=== PATIENT | female | born 1950 | race Native Hawaiian/Other Pacific Islander ===

== ENCOUNTER 2016-05-23 13:44 | Emergency (ER) | payer BC ==
[~2016-05-23] VITALS: Ht 170.2 cm; Wt 108.9 kg
[~2016-05-23 13:44] MED LIST: CELE200C2 PO; CITA20TA2 PO; FORTAMET1000 MG PO; GLIM4TAB PO; LEVO0.0218 PO; ONGLYZA5 MG PO; PANT40TA PO; TIROSINT50 MCG PO; WARFARIN5 MG PO; XANAX XR0.5 MG PO
[2016-05-23 14:59] LABS: POTASSIUM 3.4 mmol/L (3.6-5.2)
[2016-05-23 15:08] LABS: PLATELET COUNT 154 K/uL (152-353)
[2016-05-23 19:08] VITALS: BP 119/71; TEMP 98.3
== END 2016-05-23 19:13 | disposition home or self-care (01) ==
LOC: ED 13:44
PROVIDERS: Specialist
DX: L03.314 Cellulitis of groin (principal); R23.4 Changes in skin texture
CPT/HCPCS: 36415; 80048; 85027; 85651; 99282

== ENCOUNTER 2016-11-27 09:03 | Outpatient (CLI) | payer BC | END 2016-11-27 19:07 | disposition home or self-care (01) | LOC: MAMMO 09:03 | DX: Z12.31 Encounter for screening mammogram for malignant neoplasm of breast (principal) ==

== ENCOUNTER 2017-09-13 11:24 | Outpatient (CLI) | payer BC | END 2017-09-13 20:30 | disposition home or self-care (01) | LOC: CT 11:24 | DX: R10.9 Unspecified abdominal pain (principal) | CPT/HCPCS: 36415; 82565; 84520 ==

== ENCOUNTER 2018-02-16 09:13 | Emergency (ER) | payer OTHER, BC ==
[~2018-02-16] VITALS: Ht 170.2 cm; Wt 108.9 kg
[2018-02-16 09:56] VITALS: BP 148/80; TEMP 98
== END 2018-02-16 09:58 | disposition home or self-care (01) ==
LOC: ED 09:13
DX: L27.0 Generalized skin eruption due to drugs and medicaments taken internally (principal); T36.7X5A Adverse effect of antifungal antibiotics, systemically used, initial encounter; T37.8X5A Adverse effect of other specified systemic anti-infectives and antiparasitics, initial encounter; Y92.89 Other specified places as the place of occurrence of the external cause
CPT/HCPCS: 96372; 99282; J2930

== ENCOUNTER 2018-04-28 08:17 | Outpatient (CLI) | payer OTHER, BC ==
[2018-04-28 08:38] LABS: PLATELET COUNT 140 K/uL (152-353)
[2018-04-28 08:59] LABS: POTASSIUM 3.6 mmol/L (3.6-5.2)
== END 2018-04-28 19:33 | disposition home or self-care (01) ==
LOC: LABW 08:17
PROVIDERS: Internal Medicine Cardiovascular Disease
DX: Z79.899 Other long term (current) drug therapy (principal); I10 Essential (primary) hypertension; E11.9 Type 2 diabetes mellitus without complications; R06.02 Shortness of breath; E55.9 Vitamin D deficiency, unspecified
CPT/HCPCS: 36415; 80053; 80061; 82306; 83880; 85027; 86141

== ENCOUNTER 2018-05-12 08:18 | Outpatient (CLI) | payer OTHER, BC ==
[~2018-05-12] VITALS: Ht 30.5 cm; Wt 0.5 kg
== END 2018-05-12 19:09 | disposition home or self-care (01) ==
LOC: NM 08:18
DX: R00.2 Palpitations (principal); I10 Essential (primary) hypertension; R53.81 Other malaise; R07.9 Chest pain, unspecified
CPT/HCPCS: A9500; J2785

== ENCOUNTER 2018-05-17 08:55 | Outpatient (CLI) | payer OTHER, BC | END 2018-05-17 21:03 | disposition home or self-care (01) | LOC: RESP 08:55 | DX: R00.2 Palpitations (principal); I10 Essential (primary) hypertension; R53.81 Other malaise; R53.83 Other fatigue | CPT/HCPCS: 93306 ==

== ENCOUNTER 2018-09-20 15:19 | Emergency (ER) | payer OTHER, BC ==
[~2018-09-20] VITALS: Ht 170.2 cm; Wt 119.8 kg
[2018-09-20 15:35] VITALS: TEMP 97.7
[2018-09-20] MEDS ORDERED: HYZAAR1 TA1 PO (15:35)
[2018-09-20] MEDS ORDERED: WARF7.5T5 PO (15:36)
[2018-09-20] MEDS ORDERED: LIPITOR20 MG PO (15:36)
[2018-09-20] MEDS ORDERED: NEURONTIN 100M100 MG PO (15:37)
[2018-09-20] MEDS ORDERED: BASAGLAR K100 UNIT/M SC (15:39)
[2018-09-20] MEDS ORDERED: PANTOPRAZOLE 40MG TA PO (15:39)
[2018-09-20] MEDS ORDERED: NOVOLOG100 UNIT/M SC (15:40)
[2018-09-20 16:14] LABS: PLATELET COUNT 193 K/uL (152-353)
[2018-09-20 16:31] LABS: PARTIAL THROMBOPLASTIN TIME 38.5 SECONDS (24.5-33.6)
[2018-09-20 16:35] LABS: POTASSIUM 3.4 mmol/L (3.6-5.2); SODIUM 141 mmol/L (136-145)
[2018-09-20 18:17] VITALS: BP 113/65
== END 2018-09-20 18:55 | disposition home or self-care (01) ==
LOC: ED 15:19
PROVIDERS: Family Medicine
DX: E87.6 Hypokalemia (principal); E86.0 Dehydration; N28.9 Disorder of kidney and ureter, unspecified; Z79.01 Long term (current) use of anticoagulants
CPT/HCPCS: 36415; 80053; 82550; 83880; 84484; 85027; 85610; 85730; 93005; 96360; 99284

== ENCOUNTER 2018-09-25 10:20 | Emergency (ER) | payer OTHER, BC ==
[~2018-09-25] VITALS: Ht 170.2 cm; Wt 119.8 kg
[~2018-09-25 10:20] MED LIST changes: +BASAGLAR K100 UNIT/M SC; +HYZAAR1 TA1 PO; +LIPITOR20 MG PO; +NEURONTIN 100M100 MG PO; +NOVOLOG100 UNIT/M SC; +PANTOPRAZOLE 40MG TA PO; +WARF7.5T5 PO
[2018-09-25 10:26] VITALS: TEMP 96.8
[2018-09-25 11:03] LABS: PLATELET COUNT 179 K/uL (152-353)
[2018-09-25 11:11] LABS: POTASSIUM 3.9 mmol/L (3.6-5.2)
[2018-09-25 11:18] LABS: PARTIAL THROMBOPLASTIN TIME 32.8 SECONDS (24.5-33.6)
[2018-09-25 16:30] VITALS: BP 110/54
== END 2018-09-25 16:37 | disposition home or self-care (01) ==
LOC: ED 10:20
PROVIDERS: Hospitalist
DX: K59.09 Other constipation (principal); K57.30 Diverticulosis of large intestine without perforation or abscess without bleeding
CPT/HCPCS: 36415; 80053; 81000; 82150; 82272; 83690; 85027; 85610; 85730; 96360; 96374; 96376; 99284; J2270; J2405

== ENCOUNTER 2018-11-03 08:14 | Outpatient (CLI) | payer OTHER, BC ==
[2018-11-03 08:52] LABS: PLATELET COUNT 151 K/uL (152-353)
[2018-11-03 09:09] LABS: POTASSIUM 4.6 mmol/L (3.6-5.2)
== END 2018-11-03 21:48 | disposition home or self-care (01) ==
LOC: LABW 08:14
PROVIDERS: Internal Medicine
DX: E11.22 Type 2 diabetes mellitus with diabetic chronic kidney disease (principal); N18.4 Chronic kidney disease, stage 4 (severe); R82.998 Other abnormal findings in urine
CPT/HCPCS: 36415; 80053; 81000; 82330; 82570; 83036; 84100; 84155; 84550; 85027; 87086; 87088

== ENCOUNTER 2018-12-09 09:04 | Outpatient (CLI) | payer OTHER, BC | END 2018-12-09 21:27 | disposition home or self-care (01) | LOC: MAMMO 09:04 | DX: Z12.31 Encounter for screening mammogram for malignant neoplasm of breast (principal) ==

== ENCOUNTER 2019-01-31 10:43 | Outpatient (CLI) | payer OTHER, BC | END 2019-01-31 20:59 | disposition home or self-care (01) | LOC: CT 10:43 | DX: R10.32 Left lower quadrant pain (principal) | CPT/HCPCS: 36415; 82565; 84520 ==

== ENCOUNTER 2019-02-03 08:14 | Outpatient (CLI) | payer OTHER, BC ==
[2019-02-03 09:12] LABS: PLATELET COUNT 150 K/uL (152-353)
[2019-02-03 09:17] LABS: POTASSIUM 3.8 mmol/L (3.6-5.2)
== END 2019-02-03 20:14 | disposition home or self-care (01) ==
LOC: LABW 08:14
PROVIDERS: Internal Medicine
DX: E11.65 Type 2 diabetes mellitus with hyperglycemia (principal); N18.4 Chronic kidney disease, stage 4 (severe)
CPT/HCPCS: 36415; 80053; 80061; 81000; 82330; 82570; 83036; 84100; 84155; 85027

== ENCOUNTER 2019-02-20 10:05 | Outpatient (CLI) | payer OTHER, BC | END 2019-02-20 21:49 | disposition home or self-care (01) | LOC: US 10:05 | DX: R60.0 Localized edema (principal) ==

== ENCOUNTER 2019-03-01 08:40 | Outpatient (CLI) | payer OTHER, BC | END 2019-03-01 19:24 | disposition home or self-care (01) | LOC: RAD 08:40 | DX: R63.4 Abnormal weight loss (principal); K31.7 Polyp of stomach and duodenum; R10.13 Epigastric pain; R19.7 Diarrhea, unspecified ==

== ENCOUNTER 2019-03-02 08:42 | Outpatient (CLI) | payer OTHER, BC ==
[2019-03-02 09:14] LABS: POTASSIUM 4.3 mmol/L (3.6-5.2)
[2019-03-02 10:01] LABS: PLATELET COUNT 135 K/uL (152-353)
== END 2019-03-02 22:27 | disposition home or self-care (01) ==
LOC: LABW 08:42
PROVIDERS: Internal Medicine
DX: N18.4 Chronic kidney disease, stage 4 (severe) (principal)
CPT/HCPCS: 36415; 80053; 81000; 82330; 82570; 84100; 84155; 85027

== ENCOUNTER 2019-04-03 10:07 | Outpatient (CLI) | payer OTHER, BC ==
[2019-04-03 10:36] LABS: PLATELET COUNT 153 K/uL (152-353)
[2019-04-03 10:44] LABS: POTASSIUM 4.1 mmol/L (3.6-5.2)
== END 2019-04-03 19:06 | disposition home or self-care (01) ==
LOC: LABW 10:07
PROVIDERS: Internal Medicine
DX: N18.4 Chronic kidney disease, stage 4 (severe) (principal)
CPT/HCPCS: 36415; 80053; 81000; 82330; 82570; 84155; 85027

== ENCOUNTER 2019-05-09 10:50 | Outpatient (CLI) | payer OTHER, BC | END 2019-05-09 19:24 | disposition home or self-care (01) | LOC: RAD 10:50 | DX: J20.9 Acute bronchitis, unspecified (principal) ==

== ENCOUNTER 2019-08-31 09:31 | Outpatient (CLI) | payer OTHER, BC ==
[2019-08-31 10:26] LABS: POTASSIUM 4.1 mmol/L (3.6-5.2)
== END 2019-08-31 21:50 | disposition home or self-care (01) ==
LOC: RAD 09:31
PROVIDERS: Nurse Practitioner Family
DX: R53.83 Other fatigue (principal)
CPT/HCPCS: 36415; 80053; 85379

== ENCOUNTER 2019-10-26 13:46 | Inpatient (IN) | payer OTHER, BC ==
[~2019-10-26] VITALS: Ht 167.6 cm; Wt 110.5 kg
[2019-10-26 13:46] VITALS: BP 121/61; TEMP 99.1; Ht 167.6 cm; Wt 110.5 kg
[2019-10-26] MEDS ORDERED: FUROSEMIDE20 MG PO (16:53)
[2019-10-26] MEDS ORDERED: NEURONTIN 100M100 MG PO ×2 (16:55→16:59)
[2019-10-26] MEDS ORDERED: WARF5TAB6 PO (17:05)
[2019-10-26] MEDS ORDERED: COUMADIN6 MG PO (17:06)
[2019-10-26] MEDS ORDERED: LACTULOSE10 GM/151 PO (17:08)
[2019-10-26] MEDS ORDERED: ALPR0.5T24 PO (17:08)
[2019-10-26] MEDS ORDERED: LOSA50TA PO (17:11)
[2019-10-26] MEDS ORDERED: PANTOPRAZOLE SO40 M2 PO (17:14)
[2019-10-26] MEDS ORDERED: ACET-689 PO (17:14)
[2019-10-26] MEDS ORDERED: CYCLOBENZAPRINE10 MG PO (17:15)
[2019-10-26] MEDS ORDERED: ENOX40IN SC (17:17)
[2019-10-26] MEDS ORDERED: PAIN RELIEF EX500 M1 PO (17:19)
[2019-10-26] MEDS ORDERED: VITAMIN B-121000 MC2 PO (17:19)
[2019-10-26] MEDS ORDERED: VITAMIN D125 MCG PO (17:20)
[2019-10-26] MEDS ORDERED: COLON CLEANSE1 CAP PO (17:21)
[2019-10-26] MEDS ORDERED: INSU100P SC (17:29)
[2019-10-26] MEDS ORDERED: BASAGLAR K100 UNIT/M SC (17:33)
[2019-10-26 20:00] VITALS: BP 109/72; TEMP 99.2
[2019-10-27 19:52] VITALS: BP 101/55; TEMP 98.8
[2019-10-28 20:26] VITALS: BP 93/53; TEMP 99.5
[2019-10-29 20:23] VITALS: BP 93/45; TEMP 98.5
[2019-10-30 20:00] VITALS: BP 98/49; TEMP 99
[2019-10-31 08:00] VITALS: BP 111/59; TEMP 98.3
[2019-10-31 20:00] VITALS: BP 113/53; TEMP 98.7
[2019-11-01 08:00] VITALS: BP 119/64; TEMP 98.4
[2019-11-01 18:40] VITALS: BP 108/63; TEMP 98.7
[2019-11-01 20:00] VITALS: BP 91/52; TEMP 99
[2019-11-02 08:00] VITALS: BP 109/64; TEMP 98.7
[2019-11-02 19:58] VITALS: BP 99/50; TEMP 98.9
[2019-11-03 08:00] VITALS: BP 111/63; TEMP 98.8
[2019-11-03 20:00] VITALS: BP 110/54; TEMP 98.4
[2019-11-04 08:00] VITALS: BP 118/56; TEMP 98.4
[2019-11-04 20:01] VITALS: BP 127/58; TEMP 98.9
[2019-11-05 08:00] VITALS: BP 103/58; TEMP 98.6
[2019-11-08 19:57] VITALS: BP 100/51; TEMP 98.4
[2019-11-09 12:00] VITALS: BP 94/59; TEMP 98.6
[2019-11-09 19:50] VITALS: BP 109/63; TEMP 99.1
[2019-11-10 08:00] VITALS: BP 107/64; TEMP 98.3
[2019-11-10 20:00] VITALS: BP 108/55; TEMP 98.8
[2019-11-11 08:00] VITALS: BP 110/59; TEMP 98.5
[2019-11-11 12:00] VITALS: BP 110/59; TEMP 98.5
[2019-11-11 20:00] VITALS: BP 97/61; TEMP 98.6
[2019-11-12 08:00] VITALS: BP 103/66; TEMP 98.6
[2019-11-12 20:00] VITALS: BP 103/66; TEMP 98.7
[2019-11-13 08:00] VITALS: BP 103/60; TEMP 98.6
[2019-11-13 20:00] VITALS: BP 93/49; TEMP 98.2
[2019-11-14 08:00] VITALS: BP 110/57; TEMP 98.6
[2019-11-14 16:05] VITALS: BP 110/57; TEMP 98.6
[2019-11-14 19:41] VITALS: BP 94/45; TEMP 98.6
[2019-11-15 08:00] VITALS: BP 96/49; TEMP 98.5
[2019-11-15 20:00] VITALS: BP 87/50; TEMP 98.6
[2019-11-16 07:30] VITALS: BP 88/44; TEMP 98.7
[2019-11-16 12:00] VITALS: BP 111/64
[2019-11-16 20:26] VITALS: BP 104/61; TEMP 99.1
[2019-11-16 23:55] VITALS: TEMP 98.6
[2019-11-17 08:00] VITALS: BP 101/50; TEMP 98.4
[2019-11-17 20:02] VITALS: BP 96/56; TEMP 98.7
[2019-11-18 07:42] VITALS: BP 106/67; TEMP 98.8
== END 2019-11-18 15:13 | disposition home or self-care (01) | DRG 554 ==
LOC: MED/SURG 13:46
PROVIDERS: ADMIT Family Medicine
DX: M17.11 Unilateral primary osteoarthritis, right knee (principal); K56.7 Ileus, unspecified; Z47.1 Aftercare following joint replacement surgery; Z96.651 Presence of right artificial knee joint; E66.8 Other obesity; E86.0 Dehydration; K59.09 Other constipation; R26.89 Other abnormalities of gait and mobility; E11.22 Type 2 diabetes mellitus with diabetic chronic kidney disease; I12.9 Hypertensive chronic kidney disease with stage 1 through stage 4 chronic kidney disease, or unspecified chronic kidney disease; N18.3 Chronic kidney disease, stage 3 (moderate); K21.9 Gastro-esophageal reflux disease without esophagitis; G64 Other disorders of peripheral nervous system; E03.8 Other specified hypothyroidism; Z86.718 Personal history of other venous thrombosis and embolism; F32.9 Major depressive disorder, single episode, unspecified; Z79.01 Long term (current) use of anticoagulants
CPT/HCPCS: 85610; 87081; G0283-GP; J0132; J2765

== ENCOUNTER 2019-11-05 14:30 | Observation (INO) | payer OTHER, BC ==
[~2019-11-05] VITALS: Ht 167.6 cm; Wt 110.8 kg
[2019-11-05 14:29] LABS: PLATELET COUNT 245 K/uL (152-353)
[~2019-11-05 14:30] MED LIST changes: +ACET-689 PO; +ALPR0.5T24 PO; +COLON CLEANSE1 CAP PO; +COUMADIN6 MG PO; +CYCLOBENZAPRINE10 MG PO; +ENOX40IN SC; +FUROSEMIDE20 MG PO; +INSU100P SC; +LACTULOSE10 GM/151 PO; +LOSA50TA PO; +PAIN RELIEF EX500 M1 PO; +PANTOPRAZOLE SO40 M2 PO; +VITAMIN B-121000 MC2 PO; +VITAMIN D125 MCG PO; +WARF5TAB6 PO
[2019-11-05 14:41] LABS: POTASSIUM 4.6 mmol/L (3.6-5.2)
[2019-11-05 16:00] VITALS: BP 141/71; TEMP 98.4
[2019-11-05 18:50] VITALS: BP 117/64; TEMP 98.6; Ht 167.6 cm; Wt 110.8 kg
[2019-11-05 20:00] VITALS: BP 117/64; TEMP 98.8
[2019-11-06 00:01] VITALS: BP 110/71; TEMP 99.1
[2019-11-06 04:00] VITALS: BP 115/62; TEMP 98.3
[2019-11-06 05:34] LABS: POTASSIUM 4.1 mmol/L (3.6-5.2)
[2019-11-06 06:33] LABS: PLATELET COUNT 226 K/uL (152-353)
[2019-11-06 08:00] VITALS: BP 105/59; TEMP 98.7
[2019-11-06 12:00] VITALS: BP 123/69; TEMP 97.9
[2019-11-06 16:00] VITALS: BP 122/58; TEMP 98.8
[2019-11-06 20:00] VITALS: BP 131/67; TEMP 99
[2019-11-07] VITALS: BP 116/68; TEMP 98.4
[2019-11-07 04:00] VITALS: BP 123/60; TEMP 98.7
== END 2019-11-07 09:00 | disposition swing bed (61) ==
LOC: MED/SURG 14:30
PROVIDERS: ADMIT Family Medicine
DX: K56.699 Other intestinal obstruction unspecified as to partial versus complete obstruction (principal); E11.9 Type 2 diabetes mellitus without complications; I10 Essential (primary) hypertension; Z96.651 Presence of right artificial knee joint
CPT/HCPCS: 36415; 80053; 83605; 83735; 84100; 85027; 87040; 99220; G0378; G0379; J2060; J2175; J2765; J3490

== ENCOUNTER 2019-12-28 09:45 | Outpatient (CLI) | payer OTHER, BC ==
[2019-12-28 09:59] LABS: PLATELET COUNT 161 K/uL (152-353)
[2019-12-28 10:10] LABS: POTASSIUM 4.8 mmol/L (3.6-5.2)
== END 2019-12-28 20:20 | disposition home or self-care (01) ==
LOC: LABW 09:45
PROVIDERS: Nurse Practitioner Family
DX: E11.9 Type 2 diabetes mellitus without complications (principal)
CPT/HCPCS: 36415; 80053; 85027

== ENCOUNTER 2020-03-01 07:40 | Outpatient (CLI) | payer OTHER, BC ==
[2020-03-01 08:13] LABS: POTASSIUM 3.8 mmol/L (3.6-5.2)
== END 2020-03-01 18:59 | disposition home or self-care (01) ==
LOC: LABW 07:40
PROVIDERS: ATTEND Internal Medicine
DX: E11.65 Type 2 diabetes mellitus with hyperglycemia (principal)
CPT/HCPCS: 36415; 80048; 80061; 82043; 83036

== ENCOUNTER 2020-03-12 12:18 | Outpatient (CLI) | payer OTHER, BC ==
[2020-03-12 13:01] LABS: POTASSIUM 4.2 mmol/L (3.6-5.2)
[2020-03-12 13:41] LABS: PLATELET COUNT 150 K/uL (152-353)
== END 2020-03-12 23:22 | disposition home or self-care (01) ==
LOC: LABW 12:18
PROVIDERS: ATTEND Family Medicine
DX: R10.32 Left lower quadrant pain (principal)
CPT/HCPCS: 36415; 80053; 82150; 83690; 85027

== ENCOUNTER 2020-05-28 08:44 | Outpatient (CLI) | payer OTHER, BC | END 2020-05-28 19:07 | disposition home or self-care (01) | LOC: LABW 08:44 | PROVIDERS: ATTEND Nurse Practitioner Family | DX: M77.31 Calcaneal spur, right foot (principal) ==

== ENCOUNTER 2020-06-10 12:36 | Outpatient (CLI) | payer OTHER, BC ==
[2020-06-10 13:14] LABS: PLATELET COUNT 169 K/uL (152-353)
== END 2020-06-10 19:50 | disposition home or self-care (01) ==
LOC: LABW 12:36
PROVIDERS: ATTEND Internal Medicine
DX: E11.22 Type 2 diabetes mellitus with diabetic chronic kidney disease (principal); N18.4 Chronic kidney disease, stage 4 (severe); R82.998 Other abnormal findings in urine
CPT/HCPCS: 36415; 81000; 82330; 82570; 83036; 84100; 84155; 84550; 85027; 87086; 87088

== ENCOUNTER 2020-07-09 09:50 | Outpatient (CLI) | payer OTHER, BC ==
[2020-07-09 10:38] LABS: POTASSIUM 4.2 mmol/L (3.6-5.2)
== END 2020-07-09 19:34 | disposition home or self-care (01) ==
LOC: LABW 09:50
PROVIDERS: ATTEND Internal Medicine
DX: E11.65 Type 2 diabetes mellitus with hyperglycemia (principal)
CPT/HCPCS: 36415; 80048; 80061; 82043; 83036

== ENCOUNTER 2020-08-05 09:39 | Outpatient (CLI) | payer OTHER, BC | END 2020-08-05 19:59 | disposition home or self-care (01) | LOC: CT 09:39 | PROVIDERS: ATTEND Nurse Practitioner Primary Care | DX: R10.32 Left lower quadrant pain (principal) | CPT/HCPCS: 36415; 82565; 84520 ==

== ENCOUNTER 2020-08-08 12:26 | Outpatient (CLI) | payer OTHER, BC | END 2020-08-08 23:58 | disposition home or self-care (01) | LOC: RAD 12:26 → EDBD 12:26 → RAD 23:58 | PROVIDERS: ATTEND Nurse Practitioner Family | DX: Z03.89 Encounter for observation for other suspected diseases and conditions ruled out (principal) ==

== ENCOUNTER → 2020-08-09 | Emergency (ER) | payer OTHER, BC ==
[2020-08-23 11:31] LABS: POTASSIUM 4.1 mmol/L (3.6-5.2)
[2020-08-23 11:32] LABS: PLATELET COUNT 150 K/uL (152-353)
== END ==
LOC: ED 12:03 → EDBD 12:03
PROVIDERS: Family Medicine
DX: J18.9 Pneumonia, unspecified organism (principal); R05 Cough; Z20.822 Contact with and (suspected) exposure to COVID-19
CPT/HCPCS: 36415; 36600; 80053; 82805; 83605; 85027; 87040; 87502; 87635; 96365; 99284; J0696; U0003

== ENCOUNTER 2020-10-16 10:03 | Outpatient (CLI) | payer OTHER, BC ==
[2020-10-16 11:05] LABS: POTASSIUM 5.1 mmol/L (3.6-5.2)
== END 2020-10-16 19:08 | disposition home or self-care (01) ==
LOC: LABW 10:03
PROVIDERS: ATTEND Nurse Practitioner Family
DX: Z03.89 Encounter for observation for other suspected diseases and conditions ruled out (principal)
CPT/HCPCS: 36415; 80053; 82728; 85379; 86140

== ENCOUNTER 2021-01-15 10:42 | Outpatient (CLI) | payer OTHER, BC ==
[2021-01-15 11:00] LABS: PLATELET COUNT 128 K/uL (152-353)
[2021-01-15 11:14] LABS: POTASSIUM 4.3 mmol/L (3.6-5.2)
== END 2021-01-15 20:17 | disposition home or self-care (01) ==
LOC: LABW 10:42
PROVIDERS: ATTEND Internal Medicine
DX: N18.4 Chronic kidney disease, stage 4 (severe) (principal)
CPT/HCPCS: 36415; 80053; 81000; 82043; 82570; 83735; 84100; 84155; 85027

== ENCOUNTER 2021-05-07 08:25 | Outpatient (CLI) | payer OTHER, BC | END 2021-05-07 19:01 | disposition home or self-care (01) | LOC: RAD 08:25 | PROVIDERS: ATTEND Nurse Practitioner Primary Care | DX: S22.000A Wedge compression fracture of unspecified thoracic vertebra, initial encounter for closed fracture (principal); Y92.9 Unspecified place or not applicable ==

== ENCOUNTER 2021-06-03 07:12 | Outpatient (CLI) | payer OTHER, BC ==
[2021-06-03 07:40] LABS: PLATELET COUNT 130 K/uL (152-353)
[2021-06-03 08:53] LABS: POTASSIUM 4.1 mmol/L (3.6-5.2)
== END 2021-06-03 19:38 | disposition home or self-care (01) ==
LOC: LABW 07:12
PROVIDERS: ATTEND Nurse Practitioner Primary Care
DX: E53.8 Deficiency of other specified B group vitamins (principal); N18.4 Chronic kidney disease, stage 4 (severe); N25.81 Secondary hyperparathyroidism of renal origin; E78.2 Mixed hyperlipidemia; E11.22 Type 2 diabetes mellitus with diabetic chronic kidney disease
CPT/HCPCS: 36415; 80053; 80061; 81000; 82043; 82306; 82330; 82570; 82607; 83036; 83735; 83970; 84100; 84156; 84439; 84443; 84550; 85027

== ENCOUNTER 2021-08-07 15:53 | Outpatient (CLI) | payer OTHER, BC | END 2021-08-07 19:18 | disposition home or self-care (01) | LOC: LABW 15:53 | PROVIDERS: ATTEND Nurse Practitioner Family | DX: J01.80 Other acute sinusitis (principal); J20.9 Acute bronchitis, unspecified | CPT/HCPCS: 87502 ==

== ENCOUNTER 2021-09-01 12:44 | Outpatient (CLI) | payer OTHER, BC | END 2021-09-01 19:03 | disposition home or self-care (01) | LOC: MRI 12:44 | PROVIDERS: ATTEND Nurse Practitioner Family | DX: G44.52 New daily persistent headache (NDPH) (principal) ==

== ENCOUNTER 2021-09-18 08:43 | Outpatient (CLI) | payer OTHER, BC ==
[2021-09-18 09:04] LABS: PLATELET COUNT 112 K/uL (152-353)
[2021-09-18 09:26] LABS: POTASSIUM 4.3 mmol/L (3.6-5.2)
== END 2021-09-18 19:40 | disposition home or self-care (01) ==
LOC: LABW 08:43
PROVIDERS: ATTEND Internal Medicine
DX: E11.22 Type 2 diabetes mellitus with diabetic chronic kidney disease (principal); N18.4 Chronic kidney disease, stage 4 (severe); N25.81 Secondary hyperparathyroidism of renal origin; E78.2 Mixed hyperlipidemia
CPT/HCPCS: 36415; 80053; 80061; 81002; 82043; 82306; 82330; 82570; 83036; 83735; 83970; 84100; 84156; 84439; 84443; 84550; 85027

== ENCOUNTER 2021-10-09 07:43 | Emergency (ER) | payer OTHER, BC ==
[~2021-10-09] VITALS: Ht 167.6 cm; Wt 108.9 kg
[2021-10-09 07:43] VITALS: TEMP 98
[2021-10-09 08:08] LABS: PLATELET COUNT 143 K/uL (152-353)
[2021-10-09 08:34] LABS: POTASSIUM 4.2 mmol/L (3.6-5.2)
[2021-10-09 08:44] LABS: PARTIAL THROMBOPLASTIN TIME 49.5 SECONDS (24.5-33.6)
[2021-10-09 11:15] VITALS: BP 104/56
== END 2021-10-09 11:15 | disposition short-term general hospital (02) ==
LOC: ED 07:43
PROVIDERS: Emergency Medicine Emergency Medical Services
DX: I48.91 Unspecified atrial fibrillation (principal); R07.89 Other chest pain; E11.9 Type 2 diabetes mellitus without complications; Z79.4 Long term (current) use of insulin; I50.9 Heart failure, unspecified; Z86.711 Personal history of pulmonary embolism; Z79.01 Long term (current) use of anticoagulants; N18.4 Chronic kidney disease, stage 4 (severe); Z11.52 Encounter for screening for COVID-19
CPT/HCPCS: 80053; 83735; 83880; 84484; 85027; 85610; 85730; 87635; 93005; 96360; 96365; 96375; 96376; 99285; J2270; J2405; J3490; U0003

== ENCOUNTER 2021-10-30 10:20 | Observation (INO) | payer OTHER, BC ==
[~2021-10-30] VITALS: Ht 165.1 cm; Wt 111.3 kg
--- NOTE | 2021-10-30 12:40 | NUR ---
PT PALCED IN ROOM AT THIS TIME AFTER COVID SWAB RESULTS BACK. PT ASSISTED TO BED. PT DOES CO OF SORE THROAT AND COUGH SATS 95% ON RA. PT NOTED TO HAVE EXP AND INS WHEEZING AT TIME OF ADMISSION. WILL INFORM PT IN ROOM
[2021-10-30] MEDS ORDERED: Z-PAK PO (16:48)
[2021-10-30] MEDS ORDERED: MEDROL DOSEPAK4 MG PO (16:49)
[2021-10-30 16:50] VITALS: BP 125/75; TEMP 98.1; Ht 165.1 cm; Wt 111.3 kg
[2021-10-30] MEDS ORDERED: TRULICITY0.75 MG/0. SC (16:52)
[2021-10-30] MEDS ORDERED: RANO500T PO (16:52)
[2021-10-30] MEDS ORDERED: NITR0.4S2 SL (16:53)
[2021-10-30] MEDS ORDERED: AMIODARONE HCL100 MG PO (16:54)
[2021-10-30] MEDS ORDERED: CITALOPRAM20 MG PO (16:55)
[2021-10-30] MEDS ORDERED: BASAGLAR K100 UNIT/M SC (16:56)
[2021-10-30] MEDS ORDERED: ONDANSETRON4 M2 PO (17:00)
[2021-10-30 17:11] LABS: POTASSIUM 4.3 mmol/L (3.6-5.2)
[2021-10-30 17:20] LABS: PLATELET COUNT 137 K/uL (152-353)
[2021-10-30] MEDS ORDERED: [UNRECOGNIZED DRUG - CODE] PO (17:36)
[2021-10-30] MEDS ORDERED: VITAMIN B-121000 MC2 PO (17:37)
[2021-10-30] MEDS ORDERED: ZINC50 M1 PO (17:38)
--- NOTE | 2021-10-30 18:18 | NUR ---
PONCHO FROM PHARM D CALLED AND ASKED ME TO ASK PT IF SHEHAD EVER TAKEN ZITHROMAX PO SINCE PT WAS ALLERGIC TO ERTHYROMYCIN. I CALLED THE PT IN THE ROOM AND SHE SAID SHE HAS TAKEN ZPACK IN THE PAST AND PAST MONDYA AND NO PRBLEMS. SHE SAID IN THE PAST WEHN SHE TOOK ERTHY IT MADE HER STOAMCH HURT LIKE "MY RELFLUX ACTED UP". I CALLED AND LEFT MESSAGE FOR PONCHO WITH PAHFREDERICK D
[2021-10-30 20:00] VITALS: BP 142/73; TEMP 98.2
[2021-10-31] VITALS: BP 140/73; TEMP 98.2
[2021-10-31 04:00] VITALS: BP 116/53; TEMP 97.8
[2021-10-31 05:14] LABS: PLATELET COUNT 130 K/uL (152-353)
[2021-10-31 05:21] LABS: POTASSIUM 4.5 mmol/L (3.6-5.2)
[2021-10-31 08:00] VITALS: BP 128/70; TEMP 98.3
--- NOTE | 2021-10-31 11:42 | NUR ---
AM MEDS ADMINISTERED ORDERED AND PT TOLERATED WELL. PT C/O CONSTANT COUGH AND NOT RELIEVED BY TESSALON PEARLS. CONSULTED WITH HCP AND OBTAINED AN ORDER FOR ROBITUSSIN AC PO PRN Q4H. ADMINISTERED COUGH MED ORDERED. CHEST X-RAY WAS NOT COMPLETED ORDERED ON 10/30/21, WILL BE COMPLETED THIS AM. NAD NOTED. CONTINUE TO MONITOR.
[2021-10-31 12:00] VITALS: BP 132/74; TEMP 98.5
[2021-10-31 16:00] VITALS: BP 110/69; TEMP 98
--- NOTE | 2021-10-31 18:30 | NUR ---
PT HAD TO HAVE ANOTHER IV STARTED. IV IS 22 G RIGHT HAND AFTER X3 ATTEMPTS. PT IS NOW RESTING. CALL LIGHT WITHIN REACH.
[2021-10-31] MEDS ORDERED: ALBU90AE13 INH (19:09)
[2021-10-31 20:00] VITALS: BP 114/62; TEMP 98.6
--- NOTE | 2021-10-31 20:00 | NUR ---
PATIENT A/O X4. CLIENT IS WEARING HOLTER MONITOR FROM DR PRECIADO. HEART SOUNDS WNL UPON AUSCULATATION. BLE EDEMA, TRACE PITTING, CLIENT STATES THAT SHE NORMALLY HAS SWELLING AND NEUROPOTHY OF THE LEGS. CLIENT C/O OF NOT HAVING A BOWEL MOVEMENT IN A FEW DAYS AND FELT BLOATED. PROVIDED PRN MED WITH 2100 MEDS. CLIENT ALSO ASKED FOR A XANAX TO AID IN SLEEPING, REPORTS NOT SLEEPING MUCH THE NIGHT BEFORE. PROVIDED MEDICATIONS PRESCRIBED. CALL LIGHT IN REACH.
[2021-11-01] VITALS: BP 116/57; TEMP 97.8
[2021-11-01 04:00] VITALS: BP 107/60; TEMP 98.5
--- NOTE | 2021-11-01 08:11 | NUR ---
PT SITTING UP IN BED EATING BREAKFEST. PT'S LUNGS SOUND CLEAR THOUGH SHE DOES STILL HAVE A NON-PRODUCTIVE COUGH. NO REDNESS OR SWELLING AT IV SITE. CALL LIGHT WITHIN REACH. WILL CONTINUE TO MONITOR.
[2021-11-01 08:20] VITALS: BP 129/78; TEMP 98.5
--- NOTE | 2021-11-01 09:25 | NUR ---
PT HAS HAD HER IV REMOVED UPON DISCHARGE. PT HAS BEEN EDUCATED ON NEW MEDS AND IS WAITING ON SON TO PICK HER UP.
--- NOTE | 2021-11-01 09:43 | NUR ---
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 PT DICHARGED HOME WITH SON VIA WHEELCHAIR.
== END 2021-11-01 09:43 | disposition home or self-care (01) ==
LOC: MED/SURG 10:20
PROVIDERS: ADMIT Internal Medicine; ATTEND Internal Medicine
DX: J40 Bronchitis, not specified as acute or chronic (principal); K21.9 Gastro-esophageal reflux disease without esophagitis; I10 Essential (primary) hypertension; E78.49 Other hyperlipidemia; F41.8 Other specified anxiety disorders; M15.8 Other polyosteoarthritis; E03.8 Other specified hypothyroidism; I48.91 Unspecified atrial fibrillation; Z79.01 Long term (current) use of anticoagulants; E11.42 Type 2 diabetes mellitus with diabetic polyneuropathy; E11.65 Type 2 diabetes mellitus with hyperglycemia
CPT/HCPCS: 80048; 82948; 84443; 85027; 85610; 87502; 87635; 94664; 96367; 96372; 96374; 96375; 96376; 99220; G0378; G0379; J0456; J0696; J1815; J2920; U0003

== ENCOUNTER 2022-01-19 08:42 | Outpatient (CLI) | payer OTHER, BC ==
[~2022-01-19 08:42] MED LIST changes: +ALBU90AE13 INH; +AMIODARONE HCL100 MG PO; +CITALOPRAM20 MG PO; +MEDROL DOSEPAK4 MG PO; +NITR0.4S2 SL; +ONDANSETRON4 M2 PO; +RANO500T PO; +TRULICITY0.75 MG/0. SC; +Z-PAK PO; +ZINC50 M1 PO; +[UNRECOGNIZED DRUG - CODE] PO
[2022-01-19 09:10] LABS: PLATELET COUNT 149 K/uL (152-353)
[2022-01-19 09:40] LABS: POTASSIUM 4.2 mmol/L (3.6-5.2)
== END 2022-01-19 19:35 | disposition home or self-care (01) ==
LOC: LABW 08:42
PROVIDERS: ATTEND Internal Medicine
DX: E11.22 Type 2 diabetes mellitus with diabetic chronic kidney disease (principal); N18.4 Chronic kidney disease, stage 4 (severe); N25.81 Secondary hyperparathyroidism of renal origin; E78.2 Mixed hyperlipidemia; R53.83 Other fatigue; Z79.899 Other long term (current) drug therapy
CPT/HCPCS: 36415; 80053; 80061; 81002; 82043; 82306; 82330; 82550; 82570; 82607; 82728; 82746; 83036; 83540; 83550; 83735; 83970; 84100; 84156; 84439; 84443; 84550; 85027; 85652; 86038

== ENCOUNTER 2022-03-30 09:14 | Outpatient (CLI) | payer OTHER, BC ==
[2022-03-30 09:46] LABS: PLATELET COUNT 125 K/uL (152-353)
[2022-03-30 10:10] LABS: POTASSIUM 4.4 mmol/L (3.6-5.2)
== END 2022-03-30 20:16 | disposition home or self-care (01) ==
LOC: LABW 09:14
PROVIDERS: ATTEND Internal Medicine
DX: E11.22 Type 2 diabetes mellitus with diabetic chronic kidney disease (principal); N18.4 Chronic kidney disease, stage 4 (severe); N25.81 Secondary hyperparathyroidism of renal origin; E78.2 Mixed hyperlipidemia; R53.83 Other fatigue
CPT/HCPCS: 36415; 80053; 80061; 81002; 82043; 82306; 82330; 82550; 82570; 82607; 82728; 82746; 83036; 83540; 83550; 83735; 83970; 84100; 84156; 84439; 84443; 84550; 85027; 85652; 86038

== ENCOUNTER 2022-06-15 08:40 | Outpatient (CLI) | payer OTHER, BC ==
[2022-06-15 09:08] LABS: PLATELET COUNT 173 K/uL (152-353)
== END 2022-06-15 18:57 | disposition home or self-care (01) ==
LOC: LABW 08:40
PROVIDERS: ATTEND Internal Medicine
DX: E11.22 Type 2 diabetes mellitus with diabetic chronic kidney disease (principal); N18.4 Chronic kidney disease, stage 4 (severe); N25.81 Secondary hyperparathyroidism of renal origin; E78.2 Mixed hyperlipidemia; R53.83 Other fatigue
CPT/HCPCS: 36415; 80053; 80061; 81002; 82043; 82306; 82330; 82550; 82570; 82607; 82728; 82746; 83036; 83540; 83550; 83735; 83970; 84100; 84156; 84439; 84443; 84550; 85027; 85652; 86038

== ENCOUNTER 2022-07-23 09:55 | Inpatient (IN) | payer OTHER, BC ==
[~2022-07-23] VITALS: Ht 165.1 cm; Wt 109.8 kg
[2022-07-23 11:07] LABS: PLATELET COUNT 106 K/uL (152-353)
[2022-07-23 11:34] LABS: POTASSIUM 4.2 mmol/L (3.6-5.2)
[2022-07-23 14:08] VITALS: BP 104/42; TEMP 98.6; Ht 165.1 cm; Wt 109.8 kg
[2022-07-23] MEDS ORDERED: PANTOPRAZOLE 40MG TA PO (15:29)
[2022-07-23] MEDS ORDERED: LEVO0.0529 PO (15:30)
[2022-07-23] MEDS ORDERED: XARELTO15 MG PO (15:31)
[2022-07-23] MEDS ORDERED: OZEMPIC4 MG/3 ML SC (15:31)
[2022-07-23] MEDS ORDERED: ROSU10TA PO (15:33)
[2022-07-23] MEDS ORDERED: PEPCID40 MG PO (15:34)
[2022-07-23] MEDS ORDERED: FURO20TA67 PO (15:35)
[2022-07-23] MEDS ORDERED: SPIRONOLACT25 MG PO (15:35)
[2022-07-23] MEDS ORDERED: CITA20TA2 PO (15:40)
[2022-07-23] MEDS ORDERED: SUMATRIPTAN25 MG PO (15:41)
[2022-07-23] MEDS ORDERED: MECLIZINE25 MG PO (15:42)
[2022-07-23 16:00] VITALS: BP 88/41; TEMP 98.7
[2022-07-23 19:48] VITALS: BP 101/45; TEMP 99.3
[2022-07-23 23:31] VITALS: BP 111/57; TEMP 98.9
[2022-07-24 03:45] VITALS: BP 111/57; TEMP 98.6
[2022-07-24 07:56] VITALS: BP 115/60; TEMP 97.6
[2022-07-24 09:34] LABS: PLATELET COUNT 101 K/uL (152-353)
[2022-07-24 10:02] LABS: POTASSIUM 4.8 mmol/L (3.6-5.2)
[2022-07-24 11:59] VITALS: BP 116/83; TEMP 97.8
[2022-07-24 15:57] VITALS: BP 112/50; TEMP 98.3
[2022-07-24 20:00] VITALS: BP 104/51; TEMP 98.2
[2022-07-25 00:05] VITALS: BP 106/53; TEMP 98
[2022-07-25 04:10] VITALS: BP 105/52; TEMP 97.8
[2022-07-25 05:39] LABS: PLATELET COUNT 112 K/uL (152-353)
[2022-07-25 05:53] LABS: POTASSIUM 4.9 mmol/L (3.6-5.2)
[2022-07-25 08:00] VITALS: BP 96/54; TEMP 98
[2022-07-25 11:53] VITALS: BP 95/54; TEMP 98.3
[2022-07-25 16:00] VITALS: BP 94/56; TEMP 98
[2022-07-26] VITALS: BP 100/51; TEMP 98.9
[2022-07-26 04:00] VITALS: BP 96/46; TEMP 98
[2022-07-26 08:00] VITALS: BP 93/50; TEMP 97.9
[2022-07-26 12:06] VITALS: BP 112/53; TEMP 98.1
[2022-07-26 16:00] VITALS: BP 97/51; TEMP 98
[2022-07-27] VITALS: BP 107/55; TEMP 97.8
[2022-07-27 04:00] VITALS: BP 109/58; TEMP 98.4
[2022-07-27 08:01] VITALS: BP 113/55; TEMP 98
[2022-07-27 12:00] VITALS: BP 111/63; TEMP 98.6
[2022-07-27 12:17] LABS: POTASSIUM 3.9 mmol/L (3.6-5.2)
[2022-07-27 16:00] VITALS: BP 121/68; TEMP 97.9
== END 2022-07-27 18:05 | disposition home or self-care (01) | DRG 179 ==
LOC: MED/SURG 09:55
PROVIDERS: ADMIT Family Medicine; ATTEND Family Medicine
DX: U07.1 COVID-19 (principal); I95.89 Other hypotension; N28.89 Other specified disorders of kidney and ureter; E11.65 Type 2 diabetes mellitus with hyperglycemia; E66.01 Morbid (severe) obesity due to excess calories; Z68.39 Body mass index [BMI] 39.0-39.9, adult
CPT/HCPCS: 36415; 36600; 80048; 80053; 81002; 82728; 82805; 82948; 83735; 83880; 84100; 85027; 85379; 86140; 87040; 87635; 93005; 94667; 94668; 94760; 96360; 96361; 96365; 96372; 96374; 96375; J0248; J1644; J1815; J2270; J2920; U0003

== ENCOUNTER 2022-09-28 09:21 | Emergency (ER) | payer OTHER, BC ==
[~2022-09-28] VITALS: Ht 165.1 cm; Wt 105.7 kg
[~2022-09-28 09:21] MED LIST changes: +FURO20TA67 PO; +LEVO0.0529 PO; +MECLIZINE25 MG PO; +OZEMPIC4 MG/3 ML SC; +PEPCID40 MG PO; +ROSU10TA PO; +SPIRONOLACT25 MG PO; +SUMATRIPTAN25 MG PO; +XARELTO15 MG PO
[2022-09-28 09:35] LABS: PLATELET COUNT 129 K/uL (152-353)
[2022-09-28 09:45] LABS: POTASSIUM 3.8 mmol/L (3.6-5.2); SODIUM 141 mmol/L (136-145)
[2022-09-28 13:00] VITALS: BP 120/61; TEMP 98.3
[2022-09-28] MEDS ORDERED: FURO40TA93 PO (16:56)
[2022-09-28] MEDS ORDERED: NOVOLOG FL100 UNIT/M SC (17:01)
[2022-09-28] MEDS ORDERED: TRIA0.1C19 TOP (17:03)
[2022-09-28] MEDS ORDERED: VITAMIN D50000 UNIT PO (17:10)
[2022-10-05] MEDS ORDERED: VITAMIN D50000 UNIT PO (12:50)
[2022-10-05] MEDS ORDERED: APIX1TAB PO (12:50)
[2022-10-05] MEDS ORDERED: ESCI10TA PO (12:51)
[2022-10-05] MEDS ORDERED: GABA100C2 PO ×2 (12:51)
[2022-10-05] MEDS ORDERED: FURO40TA93 PO (12:51)
[2022-10-05] MEDS ORDERED: LEVO0.0529 PO (12:52)
[2022-10-05] MEDS ORDERED: INSU100P SC (12:52)
[2022-10-05] MEDS ORDERED: LOSA50TA PO (12:53)
[2022-10-05] MEDS ORDERED: ONDANSETRON4 MG/2 M1 IM (12:53)
[2022-10-05] MEDS ORDERED: MECLIZINE25 MG PO (12:53)
[2022-10-05] MEDS ORDERED: PANTOPRAZOLE 40MG TA PO (12:53)
[2022-10-05] MEDS ORDERED: SPIR50TA8 PO (12:54)
[2022-10-05] MEDS ORDERED: TRAZ50TA36 PO (12:54)
[2022-10-05] MEDS ORDERED: BLOOMIS59 SC (12:54)
== END 2022-09-28 13:00 | disposition still patient (30) ==
LOC: ED 09:21
PROVIDERS: Family Medicine
DX: R45.851 Suicidal ideations (principal); F32.A Depression, unspecified
CPT/HCPCS: 80053; 80143; 80179; 80307; 80320; 81002; 85027; 87635; 93005; 99283; U0003